=== PATIENT | male | born 1995 | race American Indian/Alaskan Native ===

== ENCOUNTER 2019-06-07 12:16 | Emergency (ER) | payer OTHER ==
[2019-06-07] MEDS ORDERED: IBUPROFEN 600 MG TAB PO ONE (13:37)
[2019-06-07] MEDS ORDERED: TETANUS,DIPH,PERTUSS(ACELL) VACCINE 0.5 ML SYRINGE IM ONE (13:37)
--- NOTE | 2019-06-07 13:37 | Event Note ---
ED Screening Note Date of service: 06/07/19 Time: 13:36 ED Screening Note: 23 y/o male comes in for laceration to left hand. This initial assessment/diagnostic orders/clinical plan/treatment(s) is/are subject to change based on patients health status, clinical progression and re- assessment by fellow clinical providers in the ED. Further treatment and workup at subsequent clinical providers discretion. Patient/guardian urged not to elope from the ED as their condition may be serious if not clinically assessed and managed. Initial orders include:
[2019-06-07] MEDS ORDERED: SODIUM CHLORIDE 0.9% IRR 500 ML BOTTLE IR ONE (14:32)
--- NOTE | 2019-06-07 14:35 | Emergency Department Report ---
ED Laceration HPI - HPI Chief Complaint: Laceration/Recheck/Suture Stated Complaint: HAND INJURY Time Seen by Provider: 06/07/19 13:36 Occurred When: Today Location: Upper Extremity Severity: mild Tetanus Status: Up to Date Laceration Symptoms: No Foreign Body Sensation, No Numbness, No Weakness, No Pain Other History: 23 YO COMES TO ER P CUTTING HAND ON GROUND [employer]. HAS WOUND TO 2/3 FINGER; CONSISTENT WITH ROAD RASH. ED Review of Systems ROS: Stated complaint: HAND INJURY Other details as noted in HPI Comment: All other systems reviewed and negative ED Past Medical Hx - Past Medical History Previous Medical History?: No - Surgical History Past Surgical History?: No - Family History Family history: no significant - Social History Smoking Status: Current Every Day Smoker - Medications Home Medications: Home Medications Medication Instructions Recorded Confirmed Last Taken Type Amoxicillin [Trimox CAP] 500 mg PO BID #20 capsule 06/07/19 Unknown Rx Silver Sulfadiazine [Ssd] 400 gm TP BID #1 each 06/07/19 Unknown Rx Laceration Physical Exam - Exam General: Vital signs noted. No distress. Alert and acting appropriately. Laceration Location: Upper Extremity Laceration Exam: Yes Normal Distal CMS, No Foreign Body, No Exposed Tendon, Vessel, or Nerve, No Tendon Injury ED Course Vital Signs 06/07/19 12:34 Temperature 98.7 F Pulse Rate 59 L Respiratory 16 Rate Blood Pressure 132/69 O2 Sat by Pulse 99 Oximetry ED Medical Decision Making - Medical Decision Making WOUND CARE PROVIDED AND TAUGHT TDAP UTD ROAD IS CONSISTENT WITH ROAD RASH. IT IS NOTHING CAN BE SUTURED. FULL ROM RAPID CAP REFILL DC HOME WITH DC PLAN OF CARE AND PCP FOLLOW UP Vital Signs 06/07/19 06/07/19 12:34 15:19 Temperature 98.7 F 98.3 F Pulse Rate 59 L 75 Respiratory 16 16 Rate Blood Pressure 132/69 Blood Pressure 128/69 [Left] O2 Sat by Pulse 99 100 Oximetry - Differential Diagnosis OPEN WOUND Critical care attestation.: If time is entered above; I have spent that time in minutes in the direct care of this critically ill patient, excluding procedure time. ED Disposition Clinical Impression: Abrasions of multiple sites Disposition: DC-01 TO HOME OR SELFCARE Is pt being admited?: No Does the pt Need Aspirin: No Condition: Stable Instructions: Acute Wound Care (ED) Additional Instructions: CLEAN WOUND WITH SOAP AND WATER TWICE PER DAY COVER IN SSD CREAM AND WRAP IN GUAZE DO THIS FOR 1 WEEK OR UNTIL HEALED MOTRIN OR TYLENOL FOR PAIN FOLLOW UP WITH PCP SHOULD YOU HAVE PROBLEMS. MED ORDERED TODAY TO PREVENT INFECTION Prescriptions: Silver Sulfadiazine [Ssd] 400 gm TP BID #1 each Amoxicillin [Trimox CAP] 500 mg PO BID #20 capsule Referrals: [facility] [Outside] - 3-5 Days Forms: Work/School Release Form(ED) Time of Disposition: 14:33
[2019-06-07 15:22] VITALS: BP 128/69
== END 2019-06-07 15:22 | disposition home or self-care (01) ==
LOC: ED 12:16
DX: S61.412A Laceration without foreign body of left hand, initial encounter (principal); W31.89XA Contact with other specified machinery, initial encounter; Y93.89 Activity, other specified; Y92.89 Other specified places as the place of occurrence of the external cause; Y99.8 Other external cause status
CPT/HCPCS: 99282; 99283